=== PATIENT | female | born 1935 | race Caucasian/White ===

== ENCOUNTER 2020-12-28 02:48 | Inpatient (IN) | payer MEDICARE, BC ==
[~2020-12-28] VITALS: Ht 152.4 cm; Wt 64.4 kg
--- NOTE | 2020-12-28 07:45 | NUR ---
SURGICAL RESIDENT NOTE- PT ADMITTED TO [facility] FOR [facility]OSIS [facility] . PT ARRIVED TO UNIT [facility]IA [facility] STAFF. ON FACE TO FACE ASSESSMENT SHE IS ALERT ORIENTED TO SELF ONLY, VERY CONFUSED , AND OPPOSITIONAL TO CARE QUESTIONS AND TX. REFUSED SKIN CARE CHECK , MRSA SWAB, WOULDN'T ANSWER QUESTIONS, REPEATED HERSELF AND DISORGANIZED. PT REFUSED INFLUENZA AND PNA VACC STATING "I DONT TAKE ANYTHING WITHOUT MY OWN DOCTOR" STATED SHE NEVER GETS VACCINES. PT PARANOID, REFUSED BREAKFAST AND DIRECTION. CALLED SON LIYA AND SPOKE TO HIM. STATED THAT SHE DETERIORATED RECENTLY. WASN'T THIS BAD A FEW WEEKS AGO. PAST MEDICAL HX IS VAST- DEMENTIA, ANXIETY, ALZHEIMERS, HTN, PACEMAKER, DM, HYPERLIPIDEMIA , HYPOTHYROIDISM, CARE HOME ANTICOAG USE (ELIQUIS). PT VS- BP- 131/84, HR- 80, RR- 18, T- 98.2, SATURATION 96%RA, ACCUCHECK BS- 144. SHE IS 5' 0" AND 143 POUNDS. PT REFUSED SKIN CHECK AND OTHER CARE. . REVIEWED PT RIGHTS AND COMPLETED UNIT ORIENTATION. PT TOLD ME "LEAVE ME ALONE. I'M LEAVING." AWARE OF ADMISSION ORDERS RECEIVED. COMPLIED
[2020-12-28 08:00] VITALS: BP 131/84
[2020-12-28] MEDS ORDERED: BLOOD SUGAR DIAGNOSTIC 1 EACH STRIP IN ONE (08:30)
[2020-12-28] MEDS ORDERED: MAG HYDROX/AL HYDROX/SIMETH 30 ML UDC PO PRN (08:30)
[2020-12-28] MEDS ORDERED: MAGNESIUM HYDROXIDE 30 ML UDC PO PRN (08:30)
[2020-12-28] MEDS ORDERED: ACETAMINOPHEN 325 MG TABLET PO PRN (08:30)
[2020-12-28] MEDS ORDERED: TEMAZEPAM 7.5 MG CAPSULE PO PRN (08:30)
[2020-12-28] MEDS ORDERED: FURO-144 PO (08:31)
[2020-12-28] MEDS ORDERED: LOPE1TAB46 PO (08:31)
[2020-12-28] MEDS ORDERED: ACET-2605 PO (08:31)
[2020-12-28] MEDS ORDERED: TRIA80OI TP (08:31)
[2020-12-28] MEDS ORDERED: APIX5TAB PO (08:31)
[2020-12-28] MEDS ORDERED: CINA30TA2 PO (08:31)
[2020-12-28] MEDS ORDERED: TRAM50TA2 PO (08:31)
[2020-12-28] MEDS ORDERED: LIOT5TAB11 PO (08:31)
[2020-12-28] MEDS ORDERED: METF-440 PO (08:31)
[2020-12-28] MEDS ORDERED: OMEP40CA13 PO (08:31)
[2020-12-28] MEDS ORDERED: DRON400T2 PO (08:31)
[2020-12-28] MEDS ORDERED: EZET10TA6 PO (08:31)
[2020-12-28] MEDS ORDERED: PARO40TA4 PO (08:31)
[2020-12-28] MEDS ORDERED: FURO-145 PO (08:31)
[2020-12-28] MEDS ORDERED: MEMA10TA PO (08:31)
[2020-12-28] MEDS ORDERED: DICY20TA11 PO (08:31)
[2020-12-28] MEDS ORDERED: BLOO-668 IN (08:31)
[2020-12-28] MEDS ORDERED: POTA10TA10 PO (08:31)
[2020-12-28] MEDS ORDERED: LEVO25TA9 PO (08:31)
[2020-12-28] MEDS ORDERED: BENZ-13 PO (08:31)
[2020-12-28] MEDS ORDERED: PRED2.5T PO (08:31)
[2020-12-28] MEDS ORDERED: LIDO30AD10 TP (08:31)
[2020-12-28] MEDS ORDERED: DILT180C93 PO (08:31)
[2020-12-28] MEDS ORDERED: DIGO125T PO (08:31)
[2020-12-28] MEDS: LORAZEPAM 0.5 MG TABLET PO PRN ×2 (09:25→20:57)
--- NOTE | 2020-12-28 09:25 | NUR ---
SAMM NOTE- AGITATED NAYING PACING. ATIVAN 0.5 MG GIVEN Addendum: 12/28/20 at 0939 by HEBER NAILS RN PT REFUSED. PK CARVAJAL RN
[2020-12-28 16:00] VITALS: BP 133/72
--- NOTE | 2020-12-28 16:05 | NUR ---
Family Contact: SW called the pts son, Tulio ([phone]), to discuss the pts treatment plan. Pts son stated that she currently lives in an Assisted Living and states that he would want her to return there if she can. SW stated that she would call the facility and inquire about readmission.
[2020-12-28] MEDS: CINACALCET HCL 30 MG TABLET PO SCH (19:00)
[2020-12-28] MEDS ORDERED: BENZONATATE 100 MG CAPSULE PO PRN (19:00)
[2020-12-28] MEDS ORDERED: ACETAMINOPHEN ES 500 MG TABLET PO PRN ×2 (19:30)
[2020-12-28] MEDS ORDERED: DICYCLOMINE HCL 10 MG CAPSULE PO PRN (19:30)
[2020-12-28] MEDS ORDERED: LOPERAMIDE HCL (2 MG CAP) 2 MG CAPSULE PO PRN (20:00)
[2020-12-28 20:24] VITALS: BP 155/75
--- NOTE | 2020-12-28 21:00 | NUR ---
RN NOTES : ANXIETY PT. C/O FEELING ANXIOUS PARANOID, SCREAMING YELLING HYPERVERVAL, PACING IN HALLWAY ATIVAN 0.5 MG PO PRN GIVEN PER PT. REQUEST , WILL CONTINUE TO MONITOR.
[2020-12-28] MEDS: MEMANTINE HCL 5 MG TABLET PO SCH (21:39)
[2020-12-28 22:00] VITALS: BP 132/72
--- NOTE | 2020-12-28 22:47 | NUR ---
RN NOTES : PT.REFUSED SKIN ASSESSMENT, ENCOURAGED ,RISKS BENEFITS EXPLANIED STILL REFUSED, WILL CONTINUE WITH CARE,
--- NOTE | 2020-12-29 06:32 | NUR ---
RN NOTES : PT.REFUSED MRSA NARES REFUSED , ENCOURAGED ,RISKS BENEFITS EXPLANIED STILL REFUSED, WILL ENDORSE TO AM NURSE FOR CONTINUITY WITH CARE. PT. REFUSED CHANGE TO HOSPITAL GOWN, ENCOURAGED, PT. BEHAVIOR UNCOOPERTIVE AT THIS TIME, BUT PT. STILL REFUSED, ENDORSE TO AM NURSE FOR CONTINUITY WITH CARE.
[2020-12-29 08:00] VITALS: BP 160/98
[2020-12-29] MEDS: LEVOTHYROXINE SODIUM 25 MCG TABLET PO SCH (08:32)
[2020-12-29] MEDS: DRONEDARONE HYDROCHLORIDE 400 MG TABLET PO SCH ×2 (08:32→17:46)
[2020-12-29] MEDS: PAROXETINE HCL 20 MG TABLET PO SCH (08:33)
[2020-12-29] MEDS: EZETIMIBE 10 MG TABLET PO SCH (08:33)
[2020-12-29] MEDS: DILTIAZEM HCL CD 180 MG PO SCH ×2 (08:34→17:45)
[2020-12-29 08:35] LABS: CHOLESTEROL 172 mg/dL (<200); HDL CHOLESTEROL 47 mg/dL (40-60); LDL 98 mg/dL (0-99); TRIGLYCERIDES 205 mg/dL (30-150)
[2020-12-29] MEDS: predniSONE 5 MG TABLET PO SCH (08:35)
[2020-12-29] MEDS: LIOTHYRONINE SODIUM (5 MCG/TA 5 MCG TABLET PO SCH (08:35)
[2020-12-29] MEDS: POTASSIUM CHLORIDE 10 MEQ TABLET.SA PO SCH ×2 (08:35→17:45)
[2020-12-29] MEDS: APIXABAN 5 MG TABLET PO SCH ×2 (08:38→17:47)
[2020-12-29] MEDS: LIDOCAINE 5% (PATCH) 1 EA PATCH TP SCH ×2 (08:39→14:28)
[2020-12-29] MEDS: FUROSEMIDE 40 MG TABLET PO SCH (08:44)
[2020-12-29] MEDS: DICYCLOMINE HCL 10 MG CAPSULE PO SCH ×2 (08:48→17:44)
[2020-12-29] MEDS: METFORMIN 500 MG TABLET PO SCH ×2 (09:00→17:45)
[2020-12-29 09:03] LABS: BILIRUBIN,TOTAL 0.5 mg/dL (0.2-1.0); CALCIUM, SERUM 9.8 mg/dL (8.5-10.1); CREATININE 0.9 mg/dL (0.6-1.3); POTASSIUM 3.6 mmol/L (3.5-5.1); TOTAL PROTEIN, SERUM 6.1 g/dL (6.4-8.2)
--- NOTE | 2020-12-29 09:45 | NUR ---
METFORMIN HELD PT. NOT EATING.
--- NOTE | 2020-12-29 11:54 | NUR ---
in room refusing to eat and crying.rn offering medication.pt. refusing.states she has nausea.offered med.pt states"maybe it will do me good to cry"
--- NOTE | 2020-12-29 13:30 | NUR ---
Facility Contact: FELIX called [facility] ([phone]) and spoke to Mary to confirm that the pt can return if stable at the time of discharge. FELIX was also informed that the pt received her first dose of the Pfizer vaccine and that the second dose is due this Monday, 01/01. FELIX stated that she would speak to her administration about this.
--- NOTE | 2020-12-29 13:35 | NUR ---
CNO Contact: FELIX contacted [facility] K[facility] (Ext [phone]) and informed him that the pt is to receive a second dose of the Pfizer vaccine this Monday 01/01.
--- NOTE | 2020-12-29 14:17 | NUR ---
Initial Discharge Plan: Pt currently resides at [facility] located at [address] [place] [address]; ([phone]). Per pts son, Tulio ([phone]), pt will return to the facility. SW will work with the pt, pts son, and MD regarding appropriate discharge planning. SW will form a safe and proper discharge.
[2020-12-29] MEDS: TRAMADOL HCL 50 MG TABLET PO PRN (14:22)
--- NOTE | 2020-12-29 14:34 | NUR ---
NOW CRYING OUT WITH PAIN,MANUEL. SHOULDERS.ENCOURAGED TO TAKE PAIN MED.GIVEN ULTRAM,LIDODERM PATCH WHICH SHE REFUSED IN THE AM AND ATIVAN 0.5 MG PO.
[2020-12-29] MEDS: LORAZEPAM 0.5 MG TABLET PO PRN (14:38)
[2020-12-29 16:00] VITALS: BP 137/67
--- NOTE | 2020-12-29 16:15 | NUR ---
Family Contact: FELIX called the pts son, Tulio ([phone]), and informed him that the SW is going working with the CNO of the hospital to ensure a plan for the pt to receive her vaccine.
[2020-12-29] MEDS: FUROSEMIDE 20 MG TABLET PO SCH (17:50)
[2020-12-29 20:00] VITALS: BP 157/102
[2020-12-29] MEDS: PANTOPRAZOLE 40 MG TABLET.DR PO SCH (20:19)
[2020-12-29] MEDS: MEMANTINE HCL 5 MG TABLET PO SCH (22:33)
--- NOTE | 2020-12-30 07:30 | NUR ---
received pt. in am,confused,but med compliant.
[2020-12-30 08:00] VITALS: BP 134/72
[2020-12-30] MEDS: TRAMADOL HCL 50 MG TABLET PO PRN (08:04)
[2020-12-30] MEDS: LIDOCAINE 5% (PATCH) 1 EA PATCH TP SCH (08:50)
[2020-12-30] MEDS: PAROXETINE HCL 20 MG TABLET PO SCH (08:51)
[2020-12-30] MEDS: LEVOTHYROXINE SODIUM 25 MCG TABLET PO SCH (08:51)
[2020-12-30] MEDS: DILTIAZEM HCL CD 180 MG PO SCH ×2 (08:51→17:29)
[2020-12-30] MEDS: LIOTHYRONINE SODIUM (5 MCG/TA 5 MCG TABLET PO SCH (08:52)
[2020-12-30] MEDS: EZETIMIBE 10 MG TABLET PO SCH (08:52)
[2020-12-30] MEDS: DRONEDARONE HYDROCHLORIDE 400 MG TABLET PO SCH ×2 (08:52→17:29)
[2020-12-30] MEDS: POTASSIUM CHLORIDE 10 MEQ TABLET.SA PO SCH ×2 (08:52→17:28)
[2020-12-30] MEDS: DICYCLOMINE HCL 10 MG CAPSULE PO SCH ×2 (08:52→17:28)
[2020-12-30] MEDS: FUROSEMIDE 40 MG TABLET PO SCH (08:57)
[2020-12-30] MEDS: PANTOPRAZOLE 40 MG TABLET.DR PO SCH ×2 (08:58→17:30)
[2020-12-30] MEDS: predniSONE 5 MG TABLET PO SCH (08:58)
[2020-12-30] MEDS: METFORMIN 500 MG TABLET PO SCH ×2 (08:58→17:29)
[2020-12-30] MEDS: APIXABAN 5 MG TABLET PO SCH ×2 (09:03→17:28)
[2020-12-30] MEDS: LORAZEPAM 0.5 MG TABLET PO PRN (12:17)
--- NOTE | 2020-12-30 12:27 | NUR ---
GIVEN ATIVAN TEARY EYED AND TALKING ABOUT SON.
[2020-12-30] MEDS: DIGOXIN 0.125 MG TABLET PO SCH (13:42)
--- NOTE | 2020-12-30 14:13 | NUR ---
Facility Contact: Mary from [facility] ([phone]) called the SW and stated that if the pt is discharged by Monday that the facility can provide the second vaccine dose to the pt. SW stated that she would let the CNO aware of that and will inform the facility if she is discharged by then.
--- NOTE | 2020-12-30 15:45 | NUR ---
walking about unit from time to time,then forgets location of rm.
[2020-12-30 16:00] VITALS: BP 145/76
[2020-12-30] MEDS: FUROSEMIDE 20 MG TABLET PO SCH (17:27)
[2020-12-30] MEDS: CINACALCET HCL 30 MG TABLET PO SCH (17:28)
--- NOTE | 2020-12-30 18:00 | NUR ---
teary eyed and requesting to call son.# dialed for pt. both son and pt. state they cannot hear on phone.rn to locate other wireless phone.pt. becoming easily frustrated.
[2020-12-30 20:00] VITALS: BP 118/58
[2020-12-30] MEDS: MEMANTINE HCL 5 MG TABLET PO SCH (22:05)
[2020-12-31] MEDS: LORAZEPAM 0.5 MG TABLET PO PRN ×2 (07:34→16:54)
[2020-12-31 08:00] VITALS: BP 135/72
[2020-12-31] MEDS: DICYCLOMINE HCL 10 MG CAPSULE PO SCH ×2 (08:50→17:01)
[2020-12-31] MEDS: EZETIMIBE 10 MG TABLET PO SCH (08:51)
[2020-12-31] MEDS: DILTIAZEM HCL CD 180 MG PO SCH ×2 (08:51→17:02)
[2020-12-31] MEDS: METFORMIN 500 MG TABLET PO SCH ×2 (08:51→17:01)
[2020-12-31] MEDS: PANTOPRAZOLE 40 MG TABLET.DR PO SCH ×2 (08:51→17:03)
[2020-12-31] MEDS: APIXABAN 5 MG TABLET PO SCH ×2 (08:52→17:03)
[2020-12-31] MEDS: PAROXETINE HCL 20 MG TABLET PO SCH (08:53)
[2020-12-31] MEDS: LEVOTHYROXINE SODIUM 25 MCG TABLET PO SCH (08:54)
[2020-12-31] MEDS: POTASSIUM CHLORIDE 10 MEQ TABLET.SA PO SCH ×2 (08:54→17:01)
[2020-12-31] MEDS: DRONEDARONE HYDROCHLORIDE 400 MG TABLET PO SCH ×2 (08:54→17:03)
[2020-12-31] MEDS: LIOTHYRONINE SODIUM (5 MCG/TA 5 MCG TABLET PO SCH (08:55)
[2020-12-31] MEDS: FUROSEMIDE 40 MG TABLET PO SCH (08:55)
[2020-12-31] MEDS: predniSONE 5 MG TABLET PO SCH (08:55)
--- NOTE | 2020-12-31 09:00 | NUR ---
RN-CO: CALLED DR HUBER FOR A NEURO CONSULT FOR THE PATIENT.
[2020-12-31] MEDS: LIDOCAINE 5% (PATCH) 1 EA PATCH TP SCH (09:32)
--- NOTE | 2020-12-31 14:04 | NUR ---
Family Contact: SW called the pts son, Tulio ([phone]), and informed him that the pts medications have not changed so she is not certain why the pt is deteriorating per son today but will inform the nurses to speak to the MD. Pts son then stated that he is not pleased that he attempted to talk to the pt yesterday and stated that the phone on the unit was not working because he could not hear the pt and she could not hear him. SW stated that she will ensure that the phones are working and that if they are not an order will get put in. SW then expressed that the goal is to discharge the pt by Monday if she is stable and the pts son became upset and stated that she is no where near discharge. SW stated that we will monitor the pt every day and make certain that she is considered to be stable before discharging. Pt stated that she will keep him updated.
[2020-12-31 16:00] VITALS: BP 146/80
[2020-12-31] MEDS: FUROSEMIDE 20 MG TABLET PO SCH (17:01)
--- NOTE | 2020-12-31 17:49 | NUR ---
RN-CO: SEE N BY DR HUBER.
[2020-12-31 20:00] VITALS: BP 131/70
[2020-12-31] MEDS: MEMANTINE HCL 5 MG TABLET PO SCH (21:28)
[2020-12-31 22:15] VITALS: BP 131/67
--- NOTE | 2020-12-31 23:18 | NUR ---
NURSES NOTES: PATIENT OFFERED HER ATIVAN 0.5 MG PO MEDICATION- A PRN ORDER BUT PATIENT REFUSED IT. PER PATIENT SHE DOES NOT TAKE MEDICATION LIKE THAT. EXPLAINED TO PATIENT THAT SHE TOOK IT EARLIER DURING THE DAY,BUT PATIENT INCOHERENTLY ANSWERS THE SHIM PLUG CUTTER WITH A DIFFERENT TOPIC. WILL CONTINUE TO MONITOR PATIENT'S BEHAVIOR.
--- NOTE | 2020-12-31 23:23 | NUR ---
NURSES NOTES: ATIVAN 0.5 MG TAB WASTED ON THE OMNICELL WITH WHEAT FARMER PAUL.
[2021-01-01 08:00] VITALS: BP 154/76
[2021-01-01] MEDS: FUROSEMIDE 40 MG TABLET PO SCH (09:08)
[2021-01-01] MEDS: LIDOCAINE 5% (PATCH) 1 EA PATCH TP SCH (09:08)
[2021-01-01] MEDS: PAROXETINE HCL 20 MG TABLET PO SCH (09:09)
[2021-01-01] MEDS: METFORMIN 500 MG TABLET PO SCH ×2 (09:09→17:49)
[2021-01-01] MEDS: DIGOXIN 0.125 MG TABLET PO SCH (09:09)
[2021-01-01] MEDS: LEVOTHYROXINE SODIUM 25 MCG TABLET PO SCH (09:09)
[2021-01-01] MEDS: DICYCLOMINE HCL 10 MG CAPSULE PO SCH ×2 (09:09→17:49)
[2021-01-01] MEDS: DILTIAZEM HCL CD 180 MG PO SCH ×2 (09:10→17:00)
[2021-01-01] MEDS: TRAMADOL HCL 50 MG TABLET PO PRN ×2 (09:11→14:45)
[2021-01-01] MEDS: POTASSIUM CHLORIDE 10 MEQ TABLET.SA PO SCH ×2 (09:11→17:49)
[2021-01-01] MEDS: EZETIMIBE 10 MG TABLET PO SCH (09:11)
[2021-01-01] MEDS: PANTOPRAZOLE 40 MG TABLET.DR PO SCH ×2 (09:11→17:48)
[2021-01-01] MEDS: LIOTHYRONINE SODIUM (5 MCG/TA 5 MCG TABLET PO SCH (09:11)
[2021-01-01] MEDS: predniSONE 5 MG TABLET PO SCH (09:11)
[2021-01-01] MEDS: DRONEDARONE HYDROCHLORIDE 400 MG TABLET PO SCH ×2 (09:11→17:49)
[2021-01-01] MEDS: APIXABAN 5 MG TABLET PO SCH ×2 (09:13→17:50)
[2021-01-01 10:39] VITALS: BP 154/76
[2021-01-01] MEDS: LORAZEPAM 0.5 MG TABLET PO PRN (14:45)
--- NOTE | 2021-01-01 15:14 | NUR ---
Facility Contact: Mary from [facility] ([phone]) called the SW and SW stated that the pt will be discharged on Monday tentatively. She stated that the drivers can pick up worker the pt around 11AM. She also stated that the pt will need a covid test.
[2021-01-01 16:09] VITALS: BP 102/60
[2021-01-01] MEDS: FUROSEMIDE 20 MG TABLET PO SCH (17:49)
[2021-01-01] MEDS: CINACALCET HCL 30 MG TABLET PO SCH (17:49)
--- NOTE | 2021-01-01 18:20 | NUR ---
PT SITTING IN THE MAIN DINING ROOM TALKING TO OTHER RESIDENTS WHILE WATCHING TV.
--- NOTE | 2021-01-01 18:43 | NUR ---
PT HAS VERY POOR APPETITE EVEN WHEN OFFERED SNACKS/JUICE ,PT STILL REFUSED.ATE HALF SLICE OF TURKEY SANDWICH FOR DINNER. CT BRAIN WITHOUT CONTRAST RESULT RELAYED TO DR CHURCH WITH NO NEW ORDER.
[2021-01-01 19:52] VITALS: BP 116/73
[2021-01-01 19:54] VITALS: BP 104/52
[2021-01-01] MEDS: MEMANTINE HCL 5 MG TABLET PO SCH (21:11)
--- NOTE | 2021-01-02 06:39 | NUR ---
RN NOTES: PATIENT RESTING IN ROOM. NO S/S OF DISTRESS. NO BEHAVIOR PROBLEMS NOTED AND NO CHANGE OF CONDITION NOTED, SAFETY PRECAUTION MAINTAINED, ALL PATIENT CARE NEEDS MET AT THIS TIME. WILL CONTINUE TO MONITOR PATIENT FOR MOOD, BEHAVIOR AND SAFETY AND ENDORSE TO AM SHIFT FOR CONTINUITY CARE.
[2021-01-02 08:00] VITALS: BP 134/78
[2021-01-02] MEDS: PANTOPRAZOLE 40 MG TABLET.DR PO SCH ×2 (08:41→17:04)
[2021-01-02] MEDS: POTASSIUM CHLORIDE 10 MEQ TABLET.SA PO SCH ×2 (08:41→17:09)
[2021-01-02] MEDS: PAROXETINE HCL 20 MG TABLET PO SCH (08:42)
[2021-01-02] MEDS: LIOTHYRONINE SODIUM (5 MCG/TA 5 MCG TABLET PO SCH (08:42)
[2021-01-02] MEDS: DILTIAZEM HCL CD 180 MG PO SCH ×2 (08:42→17:04)
[2021-01-02] MEDS: METFORMIN 500 MG TABLET PO SCH ×2 (08:43→17:04)
[2021-01-02] MEDS: LEVOTHYROXINE SODIUM 25 MCG TABLET PO SCH (08:43)
[2021-01-02] MEDS: DICYCLOMINE HCL 10 MG CAPSULE PO SCH ×2 (08:43→17:04)
[2021-01-02] MEDS: DRONEDARONE HYDROCHLORIDE 400 MG TABLET PO SCH ×2 (08:43→17:04)
[2021-01-02] MEDS: EZETIMIBE 10 MG TABLET PO SCH (08:43)
[2021-01-02] MEDS: predniSONE 5 MG TABLET PO SCH (08:44)
[2021-01-02] MEDS: FUROSEMIDE 40 MG TABLET PO SCH (08:44)
[2021-01-02] MEDS: LIDOCAINE 5% (PATCH) 1 EA PATCH TP SCH (08:44)
[2021-01-02] MEDS: APIXABAN 5 MG TABLET PO SCH ×2 (08:46→17:07)
[2021-01-02 11:11] LABS: BASOPHILS % (AUTO) 0.5 % (0.0-2.0); EOSINOPHILS % (AUTO) 1.2 % (0.0-6.0); HEMATOCRIT 40 % (33-45); HEMOGLOBIN 13.1 g/dL (11.5-14.8); LYMPHOCYTES # (AUTO) 1.8 /CMM (0.8-4.8); LYMPHOCYTES % (AUTO) 26.1 % (20.0-44.0); MEAN CORPUSCULAR HGB CONC 33 g/dl (31.0-36.0); MEAN CORPUSCULAR VOLUME 89 fL (82-100); MONOCYTES # (AUTO) 0.6 /CMM (0.1-1.30); MONOCYTES % (AUTO) 8.5 % (2.0-12.0); NEUTROPHILS # (AUTO) 4.3 /CMM (1.8-8.9); NEUTROPHILS % (AUTO) 63.7 % (43.0-81.0); PLATELET COUNT (AUTO) 173 /CMM (150-450); RED BLOOD CELL COUNT(AUTO) 4.49 MIL/uL (4.0-5.2); WHITE BLOOD COUNT (AUTO) 6.7 K/uL (4.3-11.0)
[2021-01-02 11:12] LABS: ALBUMIN 3.4 g/dL (3.4-5.0); BILIRUBIN,TOTAL 0.5 mg/dL (0.2-1.0); CALCIUM, SERUM 8.8 mg/dL (8.5-10.1); CREATININE 1.2 mg/dL (0.6-1.3); TOTAL PROTEIN, SERUM 6.8 g/dL (6.4-8.2)
--- NOTE | 2021-01-02 13:30 | NUR ---
ABNORMAL LABS CALLED IN TO DR. BERG AND YASMEEN MCNEAL BUHR DRESSER.RECEIVED ORDERS.
[2021-01-02] MEDS ORDERED: MAGNESIUM OXIDE 400 MG TABLET PO ONE (14:00)
[2021-01-02] MEDS ORDERED: POTASSIUM CHLORIDE 20 MEQ TAB.PRT.SR PO ONE ×2 (14:00→18:00)
--- NOTE | 2021-01-02 14:15 | NUR ---
GIVEN SUPPLEMENTS OF POTASSIUM AND MG.TOLERATED WELL.
[2021-01-02 16:00] VITALS: BP 128/52
--- NOTE | 2021-01-02 17:00 | NUR ---
urine sent to lab for ua and urine culture.
[2021-01-02] MEDS: FUROSEMIDE 20 MG TABLET PO SCH (17:03)
[2021-01-02] MEDS: TRAMADOL HCL 50 MG TABLET PO PRN (17:21)
--- NOTE | 2021-01-02 17:33 | NUR ---
given ultram for kelley. shoulder pain.
--- NOTE | 2021-01-02 18:52 | NUR ---
given completion of potassium supplement.
[2021-01-02 20:54] VITALS: BP 127/58
[2021-01-02] MEDS: LORAZEPAM 0.5 MG TABLET PO PRN (22:21)
[2021-01-02] MEDS: MEMANTINE HCL 5 MG TABLET PO SCH (22:21)
--- NOTE | 2021-01-03 06:41 | NUR ---
[facility]PS RN CLOSING NOTES: PATIENT AWAKE. PATIENT SLEPT 6 HR THIS SHIFT. NO BEHAVIORAL ISSUES THIS SHIFT. MEDICATION COMPLIANT. NO S/S OF DISTRESS. RESPIRATION EVEN AND UNLABORED WITH EQUAL RISE AND FALL OF THE CHEST ON ROOM AIR. SAFETY PRECAUTION MAINTAINED, BED IN LOWEST POSITION AND LOCKED. Q15 MINUTES SAFETY ROUND CONTINUED. ALL PATIENT CARE NEEDS MET ANTICIPATED. WILL CONTINUE TO MONITOR PATIENT FOR MOOD, BEHAVIOR AND SAFETY AND ENDORSE TO AM SHIFT.
[2021-01-03] MEDS: LEVOTHYROXINE SODIUM 25 MCG TABLET PO SCH (07:30)
[2021-01-03 08:00] VITALS: BP 144/66
[2021-01-03] MEDS: PAROXETINE HCL 20 MG TABLET PO SCH (09:38)
[2021-01-03] MEDS: LIDOCAINE 5% (PATCH) 1 EA PATCH TP SCH (09:38)
[2021-01-03] MEDS: DILTIAZEM HCL CD 180 MG PO SCH ×2 (09:39→17:00)
[2021-01-03] MEDS: DIGOXIN 0.125 MG TABLET PO SCH (09:39)
[2021-01-03] MEDS: EZETIMIBE 10 MG TABLET PO SCH (09:40)
[2021-01-03] MEDS: METFORMIN 500 MG TABLET PO SCH ×2 (09:40→17:54)
[2021-01-03] MEDS: predniSONE 5 MG TABLET PO SCH (09:40)
[2021-01-03] MEDS: DRONEDARONE HYDROCHLORIDE 400 MG TABLET PO SCH ×2 (09:40→17:56)
[2021-01-03] MEDS: LIOTHYRONINE SODIUM (5 MCG/TA 5 MCG TABLET PO SCH (09:40)
[2021-01-03] MEDS: DICYCLOMINE HCL 10 MG CAPSULE PO SCH ×2 (09:41→17:56)
[2021-01-03] MEDS: FUROSEMIDE 40 MG TABLET PO SCH (09:42)
[2021-01-03] MEDS: POTASSIUM CHLORIDE 10 MEQ TABLET.SA PO SCH ×2 (09:44→17:53)
[2021-01-03] MEDS: APIXABAN 5 MG TABLET PO SCH ×2 (09:45→17:54)
[2021-01-03] MEDS: PANTOPRAZOLE 40 MG TABLET.DR PO SCH ×2 (09:49→17:54)
[2021-01-03 16:00] VITALS: BP 115/75
[2021-01-03 17:08] LABS: BILIRUBIN,URINE NEGATIVE (NEGATIVE); COLOR,URINE YELLOW (YELLOW); LEUKOCYTE ESTERASE ,URINE NEGATIVE (NEGATIVE); NITRITE, URINE NEGATIVE (NEGATIVE); PH,URINE 5.5 (5.0-8.0); PROTEIN,URINE NEGATIVE (NEGATIVE); UGLUCOSE NEGATIVE (NEGATIVE); UROBILINOGEN,URINE 0.2 EU/dL (0.2)
[2021-01-03] MEDS: FUROSEMIDE 20 MG TABLET PO SCH (17:53)
[2021-01-03 20:00] VITALS: BP 113/39
[2021-01-03] MEDS: LORAZEPAM 0.5 MG TABLET PO PRN (21:31)
[2021-01-03] MEDS: MEMANTINE HCL 5 MG TABLET PO SCH (21:31)
[2021-01-04 07:25] LABS: BASOPHILS % (AUTO) 0.4 % (0.0-2.0); EOSINOPHILS % (AUTO) 1.2 % (0.0-6.0); HEMATOCRIT 37 % (33-45); HEMOGLOBIN 12.2 g/dL (11.5-14.8); LYMPHOCYTES # (AUTO) 1.8 /CMM (0.8-4.8); LYMPHOCYTES % (AUTO) 30.1 % (20.0-44.0); MEAN CORPUSCULAR HGB CONC 33 g/dl (31.0-36.0); MEAN CORPUSCULAR VOLUME 88 fL (82-100); MONOCYTES # (AUTO) 0.6 /CMM (0.1-1.30); MONOCYTES % (AUTO) 10.1 % (2.0-12.0); NEUTROPHILS # (AUTO) 3.5 /CMM (1.8-8.9); NEUTROPHILS % (AUTO) 58.2 % (43.0-81.0); PLATELET COUNT (AUTO) 158 /CMM (150-450); RED BLOOD CELL COUNT(AUTO) 4.17 MIL/uL (4.0-5.2)
[2021-01-04 08:00] VITALS: BP 150/78
[2021-01-04] MEDS: LIOTHYRONINE SODIUM (5 MCG/TA 5 MCG TABLET PO SCH (08:31)
[2021-01-04] MEDS: predniSONE 5 MG TABLET PO SCH (08:31)
[2021-01-04] MEDS: LEVOTHYROXINE SODIUM 25 MCG TABLET PO SCH (08:31)
[2021-01-04] MEDS: POTASSIUM CHLORIDE 10 MEQ TABLET.SA PO SCH (08:31)
[2021-01-04] MEDS: DRONEDARONE HYDROCHLORIDE 400 MG TABLET PO SCH (08:32)
[2021-01-04] MEDS: FUROSEMIDE 40 MG TABLET PO SCH (08:32)
[2021-01-04] MEDS: EZETIMIBE 10 MG TABLET PO SCH (08:32)
[2021-01-04] MEDS: PAROXETINE HCL 20 MG TABLET PO SCH (08:32)
[2021-01-04] MEDS: METFORMIN 500 MG TABLET PO SCH (08:32)
[2021-01-04] MEDS: PANTOPRAZOLE 40 MG TABLET.DR PO SCH (08:32)
[2021-01-04 08:33] VITALS: BP 150/78
[2021-01-04 08:33] LABS: ALBUMIN 3.3 g/dL (3.4-5.0); BILIRUBIN,TOTAL 0.5 mg/dL (0.2-1.0); CALCIUM, SERUM 9.2 mg/dL (8.5-10.1); CREATININE 1.2 mg/dL (0.6-1.3); MAGNESIUM 1.5 mg/dL (1.8-2.4); POTASSIUM 3.2 mmol/L (3.5-5.1); TOTAL PROTEIN, SERUM 6.3 g/dL (6.4-8.2)
[2021-01-04] MEDS: DICYCLOMINE HCL 10 MG CAPSULE PO SCH (08:33)
[2021-01-04] MEDS: DILTIAZEM HCL CD 180 MG PO SCH (08:33)
[2021-01-04] MEDS: APIXABAN 5 MG TABLET PO SCH (08:34)
[2021-01-04] MEDS: LIDOCAINE 5% (PATCH) 1 EA PATCH TP SCH (08:38)
--- NOTE | 2021-01-04 08:45 | NUR ---
COVID-19 TEST DONE
--- NOTE | 2021-01-04 09:40 | NUR ---
MD Contact: SW called the pts primary care physician, Dr. Paul ([phone]), and expressed that the MD in the hospital is discharging the pt today and SW expressed that she spoke to the pts eldest daughter and discussed the option of getting a caregiver for the pt at the facility. Dr. Paul stated that he would like referrals for Geriatric psychiatrists and the SW emailed him a list that can be seen below: WENDY RYAN Primary specialty: Psychiatry Additional specialty: Psychiatry (Geriatric) [address] [place] [address] CONNOR NAYLOR Primary specialty: Psychiatry Additional specialty: Psychiatry (Geriatric) [id number] [place] [address] JINNY ALVAREZ Primary specialty: Psychiatry Additional specialty: Psychiatry (Geriatric) [address] [place] [address] [facility] Primary specialty: Psychiatry Additional specialty: Psychiatry (Geriatric) [id number] [place] [address] [phone] PORTIA NEGRON Primary specialty: Psychiatry Additional specialty: Psychiatry (Geriatric) [address] [place] [address] FARIBA VARGHESE Primary specialty: Psychiatry Additional specialty: Psychiatry (Geriatric) [address] [place] [address] KENA DOLAN Primary specialty: Psychiatry Additional specialty: Psychiatry (Geriatric) [address] [place] [address] MIGUEL LINARES Primary specialty: Psychiatry (Geriatric) [address] [place] [address] JINNY ALVAREZ Primary specialty: Psychiatry Additional specialty: Psychiatry (Geriatric) [address] [place] [address] [facility] Primary specialty: Psychiatry Additional specialty: Psychiatry (Geriatric) [id number] [place] [id number] [address] Josefina NEGRON Primary specialty: Psychiatry Additional specialty: Psychiatry (Geriatric) [address] [place] [address] FARIBA VARGHESE Primary specialty: Psychiatry Additional specialty: Psychiatry (Geriatric) [address] [place] [address] KENA DOLAN Primary specialty: Psychiatry Additional specialty: Psychiatry (Geriatric) [address] [place] [address] MIGUEL LINARES Primary specialty: Psychiatry (Geriatric) [address] [place] [address] AIMEE RADFORD Primary specialty: Psychiatry Additional specialties: Addiction medicine, Psychiatry (Geriatric) [address] [place] [address] CECILIO KWON Primary specialty: Psychiatry (Geriatric) Additional specialty: Psychiatry [address] [place] [address] RUDI RICCI Primary specialty: Psychiatry (Geriatric) [address] [place] [address] EJ HARRISON Primary specialty: Psychiatry (Geriatric) [address] [place] [address] BOGDAN ASHER Primary specialty: Psychiatry (Geriatric) [address] [place] [address] BIANCA FRIEND Primary specialty: Psychiatry (Geriatric) [address] [place] [address] OSCAR AMBROSE Primary specialty: Psychiatry (Geriatric) [address] [place] [address] MARICEL MORALES Primary specialty: Psychiatry (Geriatric) [address] [place] [address] ROSANGELA MELVIN Primary specialty: Psychiatry (Geriatric) Additional specialty: Psychiatry [address] [place] [address] ANGEL GRECO Primary specialty: Psychiatry (Geriatric) [address] [place] [address] JO ANN QUINTANA Primary specialty: Psychiatry Additional specialty: Psychiatry (Geriatric) [address] [place] [address] DEBRA CONTRERAS Primary specialty: Psychiatry Additional specialty: Psychiatry (Geriatric) [address] [place] [address]
[2021-01-04] MEDS ORDERED: POTASSIUM CHLORIDE 20 MEQ TAB.PRT.SR PO ONE (10:00)
[2021-01-04] MEDS ORDERED: MAGNESIUM OXIDE 400 MG TABLET PO ONE (10:00)
--- NOTE | 2021-01-04 10:47 | NUR ---
Family Contact: SW called the pts son, Tulio ([phone]), and left a voicemail that informed him that the pt is going to be discharged today and that the SW has been in contact with the pts primary care physician. FELIX expressed that there is nothing more the MD in the hospital can do at this point and that [facility] will take over from here. FELIX explained the discharge process and stated that he is welcome to call if there are any questions.
--- NOTE | 2021-01-04 10:50 | NUR ---
[facility]PS RN NOTES LAB CALLED WITH A NEGATIVE RESULT FOR COVID-19.
--- NOTE | 2021-01-04 12:13 | NUR ---
GPS STEAM PLANT OPERATOR NOTES PATIENT DISCHARGED BACK TO FACILITY IN MEDICALLY STABLE CONDITION. PATIENT ALERT, VERBALLY RESPONSIVE, MED COMPLIANT. AT THE TIME OF DISCHARGE PATIENT DENIES ANY SUICIDAL IDEATIONS, HOMICIDAL IDEATIONS AND DENIES AUDITORY AND VISUAL HALLUCINATIONS. ALL DISCHARGE DOCUMENTATION READY AND SIGNED BY THE PATIENT. BELONGINGS AND VALUABLES ACCOUNTED FOR AND ALSO FORM SIGNED BY THE PATIENT. PATIENT LEFT THE FLOOR VIA WHEELCHAIR ACCOMPANIED BY THE RODRICK ARMSTRONG RN. PATIENT LEFT THE UNIT AT 1210. PATIENT MET BY THE FACILITY SCIENTIFIC INFORMATICS ANALYST.
--- NOTE | 2021-01-04 13:31 | NUR ---
Discharge Note: Pt will be discharged to [facility] located at [address] [place] [address]; ([phone]). Pts son, Tulio ([phone]), was made aware of the discharge. Pt will get picked up by facility drivers at 11AM. Upon discharge, the pt appears to be in a euthymic mood and her affect was mood congruent. Pt denies both suicidal and homicidal ideation as well as auditory and visual hallucinations. Pt appears to be oriented x2. Pt appears to be well groomed and appropriately dressed. Pt appears to be ambulatory with an unsteady gait. Pt was referred to be under the care of psychiatrist, [place] [address] [place] [address]; ([phone]); fax was sent to: [phone]. Pt will continue to be under the care of staff development coordinator rn, Dr. Mad[place], [place] [address] [place] [address]; . The multidisciplinary exit care form was done, printed, signed, and given to the patient.
== END 2021-01-04 12:00 | DRG 885 ==
LOC: GPS 08:04
PROVIDERS: ADMIT Psychiatry & Neurology Psychiatry; ATTEND Internal Medicine
DX: F29 Unspecified psychosis not due to a substance or known physiological condition (principal); F01.50 Vascular dementia, unspecified severity, without behavioral disturbance, psychotic disturbance, mood disturbance, and anxiety; I11.0 Hypertensive heart disease with heart failure; N17.0 Acute kidney failure with tubular necrosis; E87.0 Hyperosmolality and hypernatremia; G93.49 Other encephalopathy; E44.0 Moderate protein-calorie malnutrition; Z88.0 Allergy status to penicillin; E03.9 Hypothyroidism, unspecified; E66.9 Obesity, unspecified; E87.6 Hypokalemia; I48.91 Unspecified atrial fibrillation; Z79.01 Long term (current) use of anticoagulants; K58.9 Irritable bowel syndrome, unspecified; I50.9 Heart failure, unspecified; E78.1 Pure hyperglyceridemia; F32.9 Major depressive disorder, single episode, unspecified; Z73.6 Limitation of activities due to disability; Z20.822 Contact with and (suspected) exposure to COVID-19; M62.81 Muscle weakness (generalized); Z68.27 Body mass index [BMI] 27.0-27.9, adult; Z88.2 Allergy status to sulfonamides; Z79.899 Other long term (current) drug therapy; E11.9 Type 2 diabetes mellitus without complications; F25.9 Schizoaffective disorder, unspecified; Z79.84 Long term (current) use of oral hypoglycemic drugs
CPT/HCPCS: 36415; 70450-TC; 80053-TC; 80061-TC; 80162-TC; 82962-TC; 83735-TC; 84443-TC; 85025-TC; 87086-TC; J7512